=== PATIENT | male | born 1995 | race Caucasian/White ===

== ENCOUNTER 2017-02-18 15:18 | Observation (INO) ==
[2017-02-18] MEDS ORDERED: ZOFRAN IV ONE (15:41)
[2017-02-18] MEDS ORDERED: NS 1,000 ML IV ONE ×3 (15:41→19:41)
[2017-02-18 15:56] LABS: MANUAL DIFF NEEDED? NO
[2017-02-18 16:14] LABS: BASO% 0.3 % (0.0-0.8); EOS# 0.08 X1000 (0.0-0.7); EOS% 1.1 % (0.0-10.0); HEMATOCRIT 38.2 % (42.0-52.0); HEMOGLOBIN 12.9 g/dL (14.0-18.0); IMM GRAN# 0.01 X1000 (0.0-0.04); IMM GRAN% 0.1 % (0.0-0.5); LYMPH# 0.64 X1000 (1.2-3.4); LYMPH% 8.7 % (20.5-51.1); MCH 29.9 PG (27-31); MCHC 33.8 g/dL (33-37); MCV 88.4 FL (81-99); MONO# 0.42 X1000 (0.11-0.59); MONO% 5.7 % (1.7-9.3); MPV 10.5 FL (7.4-10.4); NEUT% 84.1 % (42.2-75.2)
--- NOTE | 2017-02-18 16:18 | Diag Imaging Result Doc PS360 ---
EXAM: FLAT/UPRIGHT ABD/1 VIEW CHEST - 02/18/2017 HISTORY: abd pain TECHNIQUE: Supine and upright abdomen one view chest COMPARISON: None. FINDINGS: There is gas visible in mostly nondistended colon. There is borderline gaseous distention of the transverse colon. There is possibly some haustral marking thickening at the right colon, which may relate to colitis. There is no substantial gaseous small bowel distention identified. There is no free air identified. Upright chest shows normal heart size. The lungs appear clear. There is no pleural effusion or pneumothorax seen. IMPRESSION: Nonspecific bowel gas pattern. Possible haustral marking thickening at right colon which may relate to colitis. No evidence of acute cardiac pulmonary disease. Electronically signed by Aramis Cummings 02/18/2017 4:16 PM
[2017-02-18] MEDS ORDERED: DOXYCYCLINE 100 MG in NS 250 ML IV ONE (16:19)
[2017-02-18 16:21] LABS: URINE SOURCE CLEAN CATCH
--- NOTE | 2017-02-18 16:21 | PROVIDER DOCUMENTATION ---
HPI-General Adult - General Chief Complaint: N/V/D Stated Complaint: SYNCOPE Time Seen by Provider: 02/18/17 15:28 Source: patient Allergies/Adverse Reactions: Patient Allergies Allergy/AdvReac Type Severity Reaction Status Date / Time Penicillins Allergy RASH Verified 02/18/17 15:25 Home Medications: Home Medication List Medication Instructions Recorded Confirmed Last Taken Type Amphetamine Salts [Adderall] 10 mg PO QPM 02/18/17 02/18/17 Unknown History Amphetamine Salts [Adderall] 20 mg PO DAILY 02/18/17 02/18/17 Unknown History - History of Present Illness -Gen Adult Nature of Presenting Problems: Pt. is 21 yom that presents with c/o fever, body aches, joint pain, and one episode of nausea with vomiting but currently has no nausea. Pt. states his symptoms began yesterday. Pt. reports he went to his PCP and they told him to go directly to the ED. Pt. states about two weeks ago he found a couple of ticks on him but isn't sure he was bitten and hasn't noticed any rashes. Pt. did have some blood drawn at his PCP office and while having it done, he passed out. Pt. denies any other symptoms. Location of Pain/Injury: reports: generalized. denies: none, head, face, mouth , neck, chest, upper extremity, hand(s), abdomen, back, pelvis, genitalia, lower extremity, feet, upper body, lower body, other Pain Radiation: reports: no radiation Quality of Pain: reports: aching. denies: burning, cramping, dull, fullness, indigestion, pressure, sharp, stabbing, tearing, throbbing, tightness Severity: reports: moderate. denies: mild, severe Onset/Duration: reports: abrupt, 24 hours ago Timing: reports: still present. denies: improving, gone now, resolved prior to arrival, intermittent, constant, changing over time, getting worse Context/Activities at Onset: reports: none. denies: recent emotional stress, recent physical stress, recent trauma history, possible bad food, cold exposure , out of country travel Modifying Factors: improves with: nothing Associated Symptoms: reports: fatigue, fever/chills, headaches, joint pain, loss of appetite, malaise, muscle aches, nausea, syncope, vomiting. denies: anxiety, arm pain, back/neck pain, chest pain, constipation, cough, diaphoresis , diarrhea, dizziness, EENT symptoms, genitourinary problems, heartburn, sinus congestion/drainage, rash, seizure, shortness of breath, sensory/motor loss, pain with inspiration, swelling/mass in abdomen, weakness, trouble walking Similar Symptoms Previously?: Yes Recently seen or treated by another doctor?: Yes Review of Systems - Adult - REVIEW OF SYSTEMS - ADULT Constitutional: reports: see HPI, chills, fever, fatique Eyes: reports: see HPI. denies: discharge, blurred vision, eye pain Ears, Nose, Mouth & Throat: reports: see HPI. denies: ear pain, nose pain, loose teeth, mouth swelling, throat pain, throat swelling Cardiovascular: reports: see HPI. denies: chest pain, irregular heart rate, palpitations, syncope Respiratory: reports: see HPI. denies: cough, dyspnea on exertion, hemoptysis, pleurisy, shortness of breath, wheezing Gastrointestinal: reports: see HPI, nausea, vomiting. denies: abdominal pain, diarrhea Genitourinary: reports: see HPI. denies: dysuria, hematuria, incontinence, urgency Musculoskeletal: reports: see HPI, joint pain, muscle aches. denies: back pain , joint swelling, neck pain Integumentary: reports: see HPI. denies: itching, rash, skin thickening Neurological: reports: see HPI. denies: ataxia, headache/migraines, numbness, seizure, tremors Psychiatric: reports: see HPI. denies: anxiety, depression, emotional problems , insomnia, panic attacks, suicidal thoughts Past History - Adult - PAST MEDICAL HISTORY-ADULT Review of Records: reports: Old Records Reviewed, Nursing Assessment Review, Medications Reviewed, Social history reviewed & non-contributory. - IMMUNIZATION STATUS Childhood Immunizations: See Nurse Assessment Flu Vaccine: See Nurse Assessment - FAMILY HISTORY Family History: reviewed, not pertinent - SOCIAL HISTORY Smoking: denies Physical Exam-General - PHYSICAL EXAM-ADULT Initial Vital Signs Reviewed: Yes - CONSTITUTIONAL General Appearance: alert, moderate distress, thin, lethargic. negative: obese , anxious, slow to respond, obtunded, combative - EYES Eyes: PERRL/EOMI, pink conjunctivae. negative: conjuctival exudate, scleral icterus, subconjunctival hemorrhage - HEAD, EARS, NOSE, MOUTH & THROAT HENMT: normocephalic/atraumatic, moist mucous membranes. negative: angioedema, frontal tenderness, maxillary tenderness - NECK Neck: non-tender, full range of motion, supple, normal inspection. negative: lymphadenopathy, trachial deviation, thyromegaly - RESPIRATORY Respiratory: lungs clear, normal breath sounds. negative: crackles, rales, rhonchi, stridor, wheezing - CARDIOVASCULAR Cardiovascular: normal peripheral pulses, regular rate, rhythm, no edema, no JVD , no murmur. negative: extra beats, friction rub, irregularly irregular - GASTROINTESTINAL (ABDOMEN) Abdominal Exam: normal bowel sounds, non tender, soft. negative: distended, guarding, rigid, rebound, tenderness, hernia, mass - LYMPHATIC Lymphatic: no adenopathy. negative: axilla node tender, cervical node tenderness - MUSCULOSKELETAL Back Exam: normal inspection, no CVA tenderness, no vertebral tenderness. negative: ecchymosis, swelling, vertebral tenderness Extremity: normal range of motion, non-tender, normal gait, normal inspection. negative: deformity, erythema, inflammation, swelling, tenderness Peripheral Pulses: radial (R): 2+, radial (L): 2+ - SKIN Integumentary: pallor, warm. negative: ecchymosis, erythema, jaundice, mottled , petechiae, purpura, rash, swelling, tenderness - NEUROLOGIC Neurologic: grossly normal, no motor/sensory deficits. negative: aphasia, facial droop, focal weakness, motor weakness, sensory deficit - PSYCHIATRIC Psych/Mental Status: normal mood/affect, normal thought content, normal thought process, oriented x 3. negative: anxious, paranoid, tearful Progress - PLAN OF CARE/RESULTS Progress/Plan/Lab Results: Vital Signs - 8 hr 02/18/17 15:20 Temperature 99.5 F Pulse Rate 91 H Respiratory Rate 18 Blood Pressure 114/52 O2 Sat by Pulse Oximetry 100 Laboratory Results - last 24 hr 02/18/17 15:48 WBC 7.38 RBC 4.32 L Hgb 12.9 L Hct 38.2 L MCV 88.4 MCH 29.9 MCHC 33.8 RDW Std Deviation 12.2 Plt Count 56 L MPV 10.5 H Immature Gran % (Auto) 0.1 Neut % (Auto) 84.1 H Lymph % (Auto) 8.7 L Darke % (Auto) 5.7 Eos % (Auto) 1.1 Baso % (Auto) 0.3 Immature Gran # (Auto) 0.01 Neut # (Auto) 6.21 Lymph # (Auto) 0.64 L Darke # (Auto) 0.42 Eos # (Auto) 0.08 Baso # (Auto) 0.02 Orders Category Date Time Status Saline Loc NOW Care 02/18/17 15:39 Active FLAT/UPRIGHT ABD/1 VIEW CHEST [RAD] Stat Exams 02/18/17 15:40 Taken AMYLASE [CHEM] Stat Lab 02/18/17 15:48 Received CBC WITH ELECTRONIC DIFF [HEME] Stat Lab 02/18/17 15:48 Completed CK PROFILE [SP CHEM] Stat Lab 02/18/17 15:48 Received COMPREHENSIVE METABOLIC PANEL [CHEM] Stat Lab 02/18/17 15:48 Received LIPASE [CHEM] Stat Lab 02/18/17 15:[address] [URINALYSIS] Stat Lab 02/18/17 15:40 Ordered 0.9% Sodium Chloride Inj [Ns] 1,000 ml Med 02/18/17 15:41 Active IV 999 mls/hr Ondansetron [Zofran] Med 02/18/17 15:41 Discontinued 4 mg IV NOW ONE Discussed results and plan of care with patient. Patient agrees with plan and verbalizes understanding. Result Diagrams: 02/18/17 17:00 02/18/17 15:48 Departure - Departure Time of Disposition Decision: 18:30 DIAGNOSIS: Malaise and fatigue, Viral syndrome Joint ache Qualifiers: Joint pain location: unspecified Qualified Code(s): M25.50 - Pain in unspecified joint Fever Qualifiers: Fever type: unspecified Qualified Code(s): R50.9 - Fever, unspecified Disposition: HOME 01 Certified Medical Emergency: Emergent Condition: Stable Additional Freetext Instructions: Follow up with primary care physician Take previously prescribed medications Alternate tylenol and motrin every 4 hours as directed by packaging for fever Drink plenty of water Return to ED for any concerns or worsening of symptoms ED Follow Up Instructions: You have been treated by a care provider in the Emergency Department. These instructions are being provided to you so you can have an understanding of how to care for yourself upon discharge. Upon discharge from the Emergency Department, you are responsible for making arrangements for follow-up care by a physician of your choice. Take all prescribed medications as directed. Return to the Emergency Department immediately for any new or worsening symptoms. You may call the Physician Referral phone number at [phone] to obtain a list of Physicians who are taking new patients. Referrals and Follow-Ups: Arturo Richards [Primary Care Provider] - - Critical Care Note This patient required my direct & personal management of CC.: No Attestation - Physician/ ROSIO Attestation Patient care was provided by Advanced Practice Provider:: Yes Advanced Practice Provider:: Jaydon Fuller Advanced Practice Provider documentation review:: The Mid-level provider documentation, treatment plan and medical decision making was reviewed by the physician who agrees with all treatment and medical decision making by the MLP.
[2017-02-18 16:24] LABS: BILIRUBIN URINE NEGATIVE (NEGATIVE); BLOOD URINE 1+ (NEGATIVE); CLARITY SL. CLOUDY (CLEAR); COLOR YELLOW; GLUCOSE URINE NEGATIVE (NEGATIVE); LEUKOCYTES URINE NEGATIVE (NEGATIVE); NITRITE URINE NEGATIVE (NEGATIVE); PH URINE 6.5; PROTEIN URINE 1+(30 mg/dL) mg/dL (NEGATIVE); SP GRAVITY URINE 1.015; URINE MICROSCOPIC NEEDED? YES; UROBILINOGEN URINE NORMAL
[2017-02-18 16:34] LABS: AGAP 16; ALBUMIN 4.2 g/dL (3.5-5.0); ALKALINE PHOSPHATASE 86 U/L (32-122); AMYLASE 23 U/L (20-200); BUN 10 mg/dL (8-22); CALCIUM 8.7 mg/dL (8.8-10.2); CHLORIDE 97 mmol/L (98-107); CK PROFILE 72 U/L (24-204); COSMO 263; GOT 31 U/L (10-34); GPT 24 U/L (10-44); LIPASE 19 U/L (13-60); POTASSIUM 3.9 mmol/L (3.5-5.1); SODIUM 132 mmol/L (136-145); TCO2 19 mmol/L (25-35)
[2017-02-18 16:43] LABS: URINE CAST NONE SEEN /LPF; URINE CRYSTAL NONE SEEN /HPF; URINE EPITHELIAL CELLS <10 /HPF (<10); URINE RBC <10 /HPF (<10)
[2017-02-18 17:22] LABS: PLT 235 X1000 (130-400); RBC 4.16 XMIL (4.7-6.1)
[2017-02-18] MEDS ORDERED: TYLENOL ONE (18:45)
[2017-02-18] MEDS: TYLENOL PO ONE ×2 (18:49)
[2017-02-18] MEDS ORDERED: NS 1,000 ML ONE (18:58)
[2017-02-18] MEDS ORDERED: ZOFRAN IV PRN (19:41)
[2017-02-18] MEDS ORDERED: ROCEPHIN 1 GM/NS 1 GM/50 ML IVPB IV SCH (19:45)
[2017-02-19] MEDS: TYLENOL PO PRN ×2 (00:35→14:39)
[2017-02-19] MEDS: DOXYCYCLINE 100 MG in NS 250 ML IV SCH ×2 (06:10→18:24)
[2017-02-19] MEDS ORDERED: NS 1,000 ML IV SCH (10:40)
[2017-02-19] MEDS: FLAGYL 500 MG/NS 500 MG/100 ML IVPB IV SCH ×2 (11:08→17:39)
--- NOTE | 2017-02-19 11:31 | HISTORY AND PHYSICAL ---
CHIEF COMPLAINT: fever, joint pain, malaise. HISTORY OF PRESENT ILLNESS: Briefly, this is a very pleasant, otherwise healthy, young man who came in with about a 2-day history of fever. Family are very attentive. He came in with persistent fever and a little bit of hypotension. So, he was placed in observation. However, they thought possibly he had a viral syndrome. He seems to be clinically improved. He has had some nausea and emesis and he has had some diarrhea, but his family states he has chronic diarrhea which is inflammatory related to IBS. He does report that he has found ticks, but no bites and no rashes and that was about 2 weeks ago. I believe he was screened for Lyme disease as an outpatient. He has also been on Adderall which that was started in the last 2 months, but that was associated with starting they believe, in any case. The patient denies any blood in his stool. Denies dysuria. Denies cough. Denies abdominal pain. Denies cramping. Denies neck pain. He does have some intermittent headaches. Workup in the ER, again, just revealed the fever which was up to 103, so he was placed in observation. PAST MEDICAL HISTORY: IBS, ADD. PAST SURGICAL HISTORY: Denies. FAMILY HISTORY: Really noncontributory, IBS alone. SOCIAL HISTORY: No tobacco or ethanol. ALLERGIES: Reports penicillin allergy. REVIEW OF SYSTEMS: Otherwise negative times a 10-point review of systems. PHYSICAL EXAMINATION: VITAL SIGNS: Blood pressure 121/51, heart rate of 100, respiratory rate 18, temperature 98.6 degrees. GENERAL: A well-developed male, no acute distress. HEAD: Normocephalic, atraumatic. EYES: Pupils equal, round, reactive to light. Extraocular movements were intact. EAR/NOSE/THROAT: He had moist mucous membranes. NECK: Supple. CARDIOVASCULAR: Regular rate and rhythm. PULMONARY: Bilateral breath sounds. Clear to auscultation. GI: Soft, nontender, nondistended. Bowel sounds are positive. LABORATORY DATA: Sodium 132. Urine looked okay. CRP was 254. White count was only 10.8. X-ray was clear. CT showed possibly some ascending colon colitis. ASSESSMENT: This is a 21-year-old male with a fever, malaise-type syndrome, but possibly some early colitis, who has symptoms suspicious for possibly a more chronic colitis such as inflammatory bowel disease. 1. Febrile syndrome. He appears to have defervesced. Workup is in progress. The patient is very adamant about trying to go home because he has got graduation this evening and his family as well. We will monitor till this afternoon. If he is stable, likely go home and pursue outpatient workup. 2. Gastrointestinal with chronic diarrhea, I would consider referring him to Gastroenterology for colonoscopy. We will try to get stool studies today and follow closely. I am more suspicious that may be related to his fever than any other process, but we will continue to follow. 3. Disposition pending. If he has no further fever, possibly go home later today. We will continue hydration. He has been placed on doxycycline. I will add Flagyl just to better cover for anaerobic organisms and we will follow. cc: Kenneth Shepherd MD
[2017-02-19 12:25] LABS: HEMATOCRIT 34.1 % (42.0-52.0); HEMOGLOBIN 11.5 g/dL (14.0-18.0); MCH 29.9 PG (27-31); MCHC 33.7 g/dL (33-37); MCV 88.8 FL (81-99); MPV 10.4 FL (7.4-10.4); RBC 3.84 XMIL (4.7-6.1)
[2017-02-19 12:33] LABS: AGAP 13; ALBUMIN 3.4 g/dL (3.5-5.0); ALKALINE PHOSPHATASE 70 U/L (32-122); BUN 5 mg/dL (8-22); CALCIUM 8.3 mg/dL (8.8-10.2); CHLORIDE 105 mmol/L (98-107); COSMO 275; GOT 23 U/L (10-34); GPT 17 U/L (10-44); POTASSIUM 3.9 mmol/L (3.5-5.1); SODIUM 139 mmol/L (136-145); TCO2 22 mmol/L (25-35); TOTAL PROTEIN 6.1 g/dL (6.3-8.3)
[2017-02-19 15:31] VITALS: BP 119/56
[2017-02-23 15:32] LABS: LYME DISEASE SCREEN SEE COMMENTS
--- NOTE | 2017-03-26 22:32 | DISCHARGE SUMMARY ---
ADMISSION DATE: 02/18/2017 DISCHARGE DATE: 02/19/2017 DISCHARGE DIAGNOSES: 1. Fever. 2. Chronic diarrhea. HOSPITAL COURSE: Briefly, this is a 21-year-old with IBS who presented with protracted nausea, vomiting. He has a history of IBS, chronic inflammation. He came in with some diarrhea. There was some concern over Lyme disease because he had exposure to ticks. He came in with fever the night before. However he defervesced without significant issues and he was very adamant about trying to go home because he had a graduation to participate in. His diarrhea had stopped. Clinically he was stabilized. He had no further fever. He did have a fever of 103 when he came in on the at 6:47 but at 1529 had defervesced and had no fever since the night before. Micro was unremarkable, blood cultures, throat culture, stool cultures were all unremarkable except he did have elevated white blood cells in the stool. He was empirically discharged on doxycycline. His laboratory data initial white count was only 10.8, the rest of his data was unremarkable. C. difficile was negative, lactoferrin was positive. EBV was negative. Influenza was negative. Group A strep was negative and Lyme disease screen was negative. I do recommend he follow up with GI for further evaluation and he is on Adderall 10 at discharge 10 at night, 20 during the day and then doxycycline 100 p.o. b.i.d. for 7 days and Flagyl 500 t.i.d. Will refer this back to Dr. Arturo Richards. He will need evaluation per GI once he is stabilized. TIME SPENT: 32 minute dictation. cc: Kenneth Shepherd MD
== END 2017-02-19 18:00 | disposition home or self-care (01) ==
LOC: P.ED 15:18 → SUATTDRO 20:05 → INTOOBSV 20:05 → P.MEDSURG 20:05
PROVIDERS: ATTEND Internal Medicine